=== PATIENT | male | born 1980 | race Caucasian/White ===

== ENCOUNTER 2018-01-21 02:27 | Inpatient (IN) | payer SELFPAY ==
[~2018-01-21] VITALS: Ht 182.9 cm; Wt 94.1 kg
[~2018-01-21 02:27] MED LIST: ACET500T68 PO; HYDR-971 PO; IBUP400T18 PO; OMEP20TA8 PO
[2018-01-21 03:21] LABS: BASO % 1 % (0-3); EOS # 0.1 x10^3/uL (0.0-0.7); EOS % 1 % (0-3); HEMATOCRIT 39.6 % (39.0-53.0); HEMOGLOBIN 13.8 g/dL (13.0-17.5); LYMPH % 20 % (24-48); MEAN CORPUSCULAR HEMOGLOBIN 29 pg (25-35); MEAN CORPUSCULAR HGB CONC 35 g/dL (31-37); MEAN CORPUSCULAR VOLUME 83 fL (79-100); MONO # 0.9 x10^3/uL (0.0-1.1); MONO % 9 % (0-9); NEUT % 70 % (31-73); PLATELET COUNT 259 x10^3/uL (140-400); RED BLOOD COUNT 4.77 x10^6/uL (4.30-5.70); RED CELL DISTRIBUTION WIDTH 13.8 % (11.5-14.5); WHITE BLOOD COUNT 10.1 x10^3/uL (4.0-11.0)
[2018-01-21] MEDS ORDERED: IV NORMAL SALINE 1,000ML 1,000 ML IV ONE ×2 (03:30→05:30)
[2018-01-21] MEDS ORDERED: IV NORMAL SALINE 1,000ML 1,000 ML IV SCH (03:30)
[2018-01-21] MEDS ORDERED: KETOROLAC 30 MG/ML VIAL. IV ONE (03:30)
[2018-01-21] MEDS ORDERED: CLINDAMYCIN 900MG PREMIX 50 ML IV ONE (03:30)
[2018-01-21 03:34] LABS: CALCIUM 8.8 mg/dL (8.5-10.1); CREATININE 0.9 mg/dL (0.7-1.3); GFR 95.5; POTASSIUM 3.4 mmol/L (3.5-5.1)
--- NOTE | 2018-01-21 03:42 | PHYS DOC ---
Past History Past Medical History: Gallstones, GERD Past Surgical History: Cholecystectomy Alcohol Use: Occasionally Drug Use: Amphetamine, Benzodiazepine, Heroin, Opiates Adult General Chief Complaint Chief Complaint: ABSCESS HPI HPI 37-year-old male with a history of multidrug abuse including IV heroin as well as IV methamphetamines now presents to the emergency department complaining of infection right forearm and left hand and wrist. Patient has multiple IV injections daily. Over the last few days he is involved an infection on the dorsum of his left hand with some pus drainage significant hand wrist and forearm swelling and pain. Patient denies fevers chills sweats or shaking chills. He has no headache or stiff neck. No chest pain or shortness of breath. Patient also has an area of erythema on the medial aspect of his left mid forearm. This is tender but has no drainage. Patient is a habitual drug user is not suicidal and has not attempted to harm himself. He has not overdosed intentionally nor is he homicidal. Patient states he does not lick his needles prior to using them. Review of Systems Review of Systems Constitutional: Denies fever or chills [] Eyes: Denies change in visual acuity, redness, or eye pain [] HENT: Denies nasal congestion or sore throat [] Respiratory: Denies cough or shortness of breath [] Cardiovascular: No additional information not addressed in HPI [] GI: Denies abdominal pain, nausea, vomiting, bloody stools or diarrhea [] : Denies dysuria or hematuria [] Musculoskeletal: Denies back pain or joint pain [] Integument: Denies rash or skin lesions [] Neurologic: Denies headache, focal weakness or sensory changes [] Endocrine: Denies polyuria or polydipsia [] All other systems were reviewed and found to be within normal limits, except as documented in this note. Current Medications Current Medications Current Medications Medications (Trade) Dose Ordered Sig/Rober Start Time Stop Time Status Last Admin Dose Admin Clindamycin Phosphate 50 ml @ 100 mls/hr 1X ONCE 01/21/18 03:30 01/21/18 03:59 Ketorolac Tromethamine (Toradol) 30 mg 1X ONCE 01/21/18 03:00 01/21/18 03:01 UNV Sodium Chloride 1,000 ml @ 1,000 mls/hr 1X ONCE 01/21/18 03:30 01/21/18 04:29 Allergies Allergies Allergies Coded Allergies Type Severity Reaction Last Updated Verified No Known Allergies Allergy Unknown 03/04/15 No Physical Exam Physical Exam Constitutional: Patient alert communicative cooperative and appropriate. Unkempt appearance. 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 He has multiple highly visible track baron with tattooing of the individual track baron. On the dorsum of his left hand there is a small "head "which drains PERRLA and drainage with pressure the surrounding area. After pus is expressed was no continued fluctuance and no crepitus of the hand wrist or forearm. Soft tissue swelling involves the whole left hand however he does have range of motion of his fingers without difficulty. Proximal forearm is relatively spared and compartments of the forearm are soft. Neurovascularly intact with good capillary refill distally. Patient has mild tachycardia on exam between 100 and 110 bpm. Medial aspect right mid forearm with 3 cm x 3 cm erythema with mild induration and warmth. No fluctuance or crepitus compartments soft. neurovascularly intact distally HENT: Normocephalic, atraumatic, bilateral external ears normal, oropharynx moist, no oral exudates, nose normal. [] Eyes: PERRLA, EOMI, conjunctiva normal, no discharge. [] Neck: Normal range of motion, no tenderness, supple, no stridor. [] Cardiovascular:Heart rate regular rhythm, no murmur [] Lungs & Thorax: Bilateral breath sounds clear to auscultation [] Abdomen: Bowel sounds normal, soft, no tenderness, no masses, no pulsatile masses. [] Skin: As above Back: No tenderness, no CVA tenderness. [] Extremities: No tenderness, no cyanosis, no clubbing, ROM intact, no edema. [] Neurologic: Alert and oriented X 3, normal motor function, normal sensory function, no focal deficits noted. [] Psychologic: Affect normal, judgement normal, mood normal. [] EKG EKG [] Radiology/Procedures Radiology/Procedures X-ray left forearm unremarkable no acute disease no foreign body or bony abnormality. Interpreted by me X-ray left hand with soft tissue swelling cannot rule out foreign body over hamate. No acute bony abnormality. Interpreted by me[] Impressions: Procedure: I&D of abscess left hand. Dorsum of left hand and distribution of tract baron with abscess with "point/head. "Head unroofed with 18-gauge needle by me. Positive purulent drainage. Pus expressed gently. Spontaneous drainage achieved. Patient tolerated well without complication. Wound culture obtained after sterile Betadine prep of surrounding area prior to procedure. Course & Med Decision Making Course & Med Decision Making Pertinent Labs and Imaging studies reviewed. (See chart for details) Patient with cellulitis and abscess left hand and wrist with cellulitis of right forearm secondary to IV drug abuse. Wound culture collected from purulent drainage of left hand. Blood cultures drawn and antibiotic coverage initiated with clindamycin. IV fluid bolus initiated with volume adequate for Sirs and sepsis coverage. X-ray left forearm unremarkable. X-ray right hand and wrist with hyperdensity over the hamate with inability to rule out foreign body. No acute bony abnormality area interpreted by me. Dr. Ladd aware of x-ray findings as well as remainder of workup and accept the patient for inpatient admission his service. [] Dragon Disclaimer Dragon Disclaimer This electronic medical record was generated, in whole or in part, using a voice recognition dictation system. Departure Departure: Impression: Primary Impression: Abscess of left hand Additional Impressions: Tachycardia Cellulitis of right forearm IV drug abuse SIRS (systemic inflammatory response syndrome) Sepsis Disposition: ADMITTED INPATIENT Admitting Physician: Luis Carlos Ladd Condition: GUARDED Referrals: PRIMO ALVARES MD (PCP) Problem Qualifiers DANIEL TARIQ MD Jan 21, 2018 03:42
[2018-01-21] MEDS ORDERED: NICOTINE 21MG PATCH. TD ONE (05:00)
[2018-01-21] MEDS ORDERED: ACETAMINOPHEN 325 MG TABLET PO PRN (05:45)
[2018-01-21] MEDS ORDERED: ONDANSETRON PF 4 MG/2 ML VIAL. IV PRN (05:45)
[2018-01-21 06:19] VITALS: BP 110/66
--- NOTE | 2018-01-21 07:08 | RAD ---
Left hand, 3 views, 01/21/2018: History: IV drug abuser, abscess on hand No fracture or destructive bony lesion is seen. There is diffuse soft tissue swelling about the hand. No radiopaque foreign body is evident in the soft tissues. IMPRESSION: No acute bony abnormality is detected. Right forearm, 2 views, 01/21/2018: History: Abscess No fracture or destructive bony lesion is seen. Soft tissue swelling is present anteromedially. No radiopaque foreign body is evident in the soft tissues. IMPRESSION: No significant bony abnormality is detected.
[2018-01-21] MEDS: IV NORMAL SALINE 1,000ML 1,000 ML IV SCH ×3 (08:00→22:15)
[2018-01-21] MEDS ORDERED: PIP/TAZO PER PHARMACY MC PRN (09:30)
[2018-01-21] MEDS ORDERED: MORPHINE SULFATE 4 MG/ML DISP.SYRIN. IV PRN (09:30)
[2018-01-21] MEDS ORDERED: VANCOMYCIN 1 GM in IV NORMAL SALINE 250ML 250 ML IV SCH (09:30)
[2018-01-21] MEDS ORDERED: VANCOMYCIN 2 GM in IV NORMAL SALINE 500ML 500 ML IV ONE (10:00)
[2018-01-21 10:48] VITALS: BP 126/81
[2018-01-21] MEDS: VANCOMYCIN PER PHARMACY MC PRN (11:14)
[2018-01-21] MEDS: PIPERACILLIN/TAZOBACTAM 3.375 GM in IV NORMAL SALINE 50ML 50 ML IV SCH ×3 (14:06→23:55)
[2018-01-21] MEDS: KETOROLAC 15 MG/ML VIAL. IV PRN ×2 (14:07→21:45)
[2018-01-21] MEDS: HYDROmorphone PF 2 MG/ML VIAL IV PRN ×3 (14:07→23:55)
[2018-01-21 15:44] VITALS: BP 156/87
--- NOTE | 2018-01-21 17:20 | HP ---
ADMIT DATE: 01/21/2018 HISTORY OF PRESENT ILLNESS: The patient is a 37-year-old male patient with a multitude drug abuse including IV heroin, methamphetamine, as well as Xanax, who presented to the Emergency Department complaining of pain and swelling to his right forearm in the dorsal aspect of left hand and wrist. He has multiple IV injection daily over the last few days. He injected the dorsum of his left hand with some pus drainage and significant wrist and forearm swelling and pain. He denied any fever, chills, sweats, or shaking chills. He has no headache or stiff neck. No chest pain or shortness of breath. He has also an area of erythema on the medial aspect of the left mid forearm that is tender, but has no drainage. The patient is a habitual drug user. He is not suicidal and has not attempted to harm himself. He has not overdosed intentionally nor is homicidal. He stated that he does not flick his needle before using them. He was evaluated in the Emergency Room and he was found to have an infected left hand and wrist, abscess in the left hand and cellulitis of the right forearm, IV drug abuse with signs of systemic inflammatory response syndrome. PAST MEDICAL HISTORY: Apart from habitual drug use is unremarkable. PAST SURGICAL HISTORY: Significant for cholecystectomy and right knee surgery. ALLERGIES: He has no known drug allergies. MEDICATIONS: He is actually on no medication at home. FAMILY HISTORY: Unremarkable. SOCIAL HISTORY: He is , has a son. He is a senior it recruiter, does multiple jobs. He does not smoke, drink alcohol, but has been abusing heroin, methamphetamine, and Xanax. REVIEW OF SYSTEMS: As per history of present illness. PHYSICAL EXAMINATION: VITAL SIGNS: On arrival, he was tachycardic with a heart rate of 107, blood pressure 126/70, temperature was 98.9, respiratory rate 20, and oxygen saturation was 98% on room air. HEAD, EYES, EARS, NOSE, AND THROAT: Showed normocephalic, atraumatic. NECK: Supple. HEART: Showed normal first and second heart sounds with no gallop, rub, or murmur. CHEST: Clear to auscultation. No crepitation or rhonchi. ABDOMEN: Distended, soft, nontender. NEUROLOGIC: He was awake, alert, responding appropriately. Cranial nerves intact. Examination of his right forearm showed that the area of erythema and induration, but no fluctuation consistent with cellulitis. The left hand is markedly swollen because tracks of drug injection with areas of erythema and abscess that was opened. The swelling extends to the distal aspect of the left forearm. LABORATORY DATA: On admission showed a white cell count of 10,000, hemoglobin 13.8, hematocrit 39, MCV 83, and platelet count of 259,000. His chemistry showed a serum sodium 139, potassium 3.4, chloride 101, bicarbonate 28, anion gap of 10, BUN 10, creatinine was 0.9, estimated GFR was 96 mL per minute, his glucose 144. Lactic acid was 1.2. Calcium was 8.8 and CK was 188. ASSESSMENT AND PLAN: The patient was given clindamycin; however, given his presentation, I will broaden his antibiotic to both vancomycin and Zosyn. I will arrange for him to have a PICC line and continue with Zosyn 3.375 grams IV every 8 hours and vancomycin 1 gram IV b.i.d. with the pharmacy to adjust the dose. Continue with IV fluid and decide on further management accordingly. ROXANA STOCKTON MD DR: KUMAR/katy JOB#: [id number] / [id number]
[2018-01-21] MEDS: VANCOMYCIN 1.25 GM in IV NORMAL SALINE 250ML 250 ML IV SCH (18:11)
[2018-01-21 19:02] VITALS: BP 141/75
[2018-01-21 23:35] VITALS: BP 142/71
[2018-01-22] MEDS: VANCOMYCIN 1.25 GM in IV NORMAL SALINE 250ML 250 ML IV SCH ×2 (03:36→11:00)
[2018-01-22] MEDS: HYDROmorphone PF 2 MG/ML VIAL IV PRN ×4 (03:38→17:25)
[2018-01-22 05:21] VITALS: BP 133/74
[2018-01-22] MEDS: PIPERACILLIN/TAZOBACTAM 3.375 GM in IV NORMAL SALINE 50ML 50 ML IV SCH ×2 (05:44→12:12)
[2018-01-22] MEDS: KETOROLAC 15 MG/ML VIAL. IV PRN ×2 (05:44→12:07)
[2018-01-22 06:09] LABS: HEMATOCRIT 35.7 % (39.0-53.0); RED BLOOD COUNT 4.21 x10^6/uL (4.30-5.70); RED CELL DISTRIBUTION WIDTH 13.8 % (11.5-14.5); WHITE BLOOD COUNT 9.2 x10^3/uL (4.0-11.0)
[2018-01-22 06:19] LABS: ALBUMIN 2.6 g/dL (3.4-5.0); ALBUMIN/GLOBULIN RATIO 0.7 (1.0-1.7); CALCIUM 7.9 mg/dL (8.5-10.1); CREATININE 0.8 mg/dL (0.7-1.3); GFR 109.4; TOTAL BILIRUBIN 0.5 mg/dL (0.2-1.0); TOTAL PROTEIN 6.2 g/dL (6.4-8.2)
[2018-01-22 10:24] VITALS: BP 147/81
[2018-01-22 10:46] LABS: VANC TR 13.2 mcg/mL (10.0-20.0)
[2018-01-22] MEDS: VANCOMYCIN PER PHARMACY MC PRN (10:55)
[2018-01-22 14:57] VITALS: BP 162/94
--- NOTE | 2018-01-22 21:09 | DS ---
DATE OF DISCHARGE: 01/22/2018 HOSPITAL COURSE: The patient is a 37-year-old male patient, who is known to abuse multiple drugs including IV heroin and methamphetamine as well as Xanax and who presented to the Emergency Department complaining of pain and swelling of his right forearm, the dorsal aspect of the left hand and wrist. He had multiple IV injection daily over the last few days. He injected the dorsum of his left hand and that side, there was some pus drain draining and significant wrist and forearm swelling and pain; however, he denied any fever, chills, sweats or shaking chills. He has no headache or neck stiffness. No chest pain or shortness of breath. There is also an area of erythema and induration on the medial aspect of the right forearm that is tender, but has no drainage. He is a habitual drug user. He is not suicidal. He has not attempted to harm himself. He has not overdosed intentionally nor is homicidal. He said that he does not lick his needles before using them. He was evaluated in the Emergency Room, was found to have an infected left hand and wrist abscess in the dorsal aspect of the left hand and cellulitis of his right forearm and after obtaining the appropriate cultures and incision of the abscess, he was started on IV vancomycin and Zosyn after placement of a PICC line. Unfortunately, although the abscess was incised, the incision was very small and the patient continued to have large amount of thick pus that required surgical incision in both left forearm and the dorsal aspect of left forearm and the medial aspect of the right forearm, and therefore, a decision was made to transfer him to [facility] to consult the orthopedic surgeon as well as the infectious disease specialist to assist with management. PHYSICAL EXAMINATION: GENERAL: When I saw him today, he looked well and was clearly in no apparent respiratory distress, pale, but no jaundice, cyanosis or thyromegaly. No jugular venous distension. No limb edema. VITAL SIGNS: His heart rate was 88, blood pressure 147/81, temperature was 98.4, respiratory rate 20 and oxygen saturation was 98%. HEAD, EYES, EARS, NOSE AND THROAT: Showed normocephalic, atraumatic. NECK: Supple. HEART: Showed normal first and second sounds. No gallop, rub or murmur. CHEST: Clear to auscultation. No crepitation or rhonchi. ABDOMEN: Distended, soft, nontender. NEUROLOGIC: He is awake, alert, responding appropriately. All cranial nerves intact. EXTREMITIES: He moves extremities without difficulty, ambulates without assistance or assistive devices. Examination of the left upper extremity showed as marked swelling involving the dorsal aspect of the left wrist with an abscess over the dorsal aspect of the left wrist. He has also an area of induration and fluctuance on the medial aspect of the forearm with overlying erythema and tenderness. LABORATORY DATA: His lab work this morning showed a white cell count of 9200, hemoglobin 12, hematocrit 36, MCV 85 and platelet count of 199,000. His chemistry showed a serum sodium 139, potassium 4, chloride 106, bicarbonate 26, anion gap of 7, BUN 9, creatinine 0.8. Estimated GFR was 190 mL per minute. His glucose 117. Calcium was 7.9. Total bilirubin and alkaline phosphatase normal. AST and ALT are elevated. His total protein was 6.2, albumin 2.6. DISCHARGE INSTRUCTIONS: The patient was transferred to [facility] to continue with IV vancomycin, piperacillin, tazobactam as well as hydromorphone for pain management. We will consult the orthopedic surgeon as well as Infectious Disease for incision and drainage of the left forearm abscess and the right forearm abscess. FINAL DISCHARGE DIAGNOSES: Habitual addiction to heroin, methamphetamine and Xanax, abscess and cellulitis of the dorsal aspect of the left wrist and hand, abscess in the medial aspect of the right forearm. ROXANA STOCKTON MD DR: KUMAR/katy JOB#: [id number] / [id number]
--- NOTE | 2018-01-23 02:24 | PN ---
DATE: 01/22/2018 SUBJECTIVE: The patient is sitting comfortably in bed, no apparent distress. He continued to complain of pain in his left hand and right forearm, although he admits that the swelling is much improved compared to yesterday. He denied any chills, rigors or fever. PHYSICAL EXAMINATION: GENERAL: When I examined him, he looked well and was clearly in no apparent respiratory distress, pale. No jaundice, cyanosis, or thyromegaly. No jugular venous distension. No lower limb edema. VITAL SIGNS: His heart rate was 88, blood pressure was 147/81, temperature was 98.4, respiratory rate 20, and oxygen saturation was 98% on room air. HEAD, EYES, EARS, NOSE AND THROAT: Showed normocephalic, atraumatic. NECK: Supple. HEART: Showed normal first and second heart sounds with no gallop, rub or murmur. CHEST: Clear to auscultation. No crepitation or rhonchi. ABDOMEN: Distended, soft, nontender. No guarding or rigidity. No organomegaly. Hernial orifice intact. Bowel sounds normal. NEUROLOGIC: He is awake, alert, responding appropriately. Cranial nerves intact. He moves extremities without difficulty. His wounds in the dorsum of his left hand and right forearm were covered with dressing. His intake was 3127. No output was recorded. LABORATORY DATA: Showed a white cell count is 9200, hemoglobin 12, hematocrit 36, MCV 85 and platelet count of 199,000. His chemistry showed a serum sodium 139, potassium 4, chloride 106, bicarbonate 26, anion gap of 7, BUN 9, creatinine was 0.8, estimated GFR was 190 mL per minute, his glucose ____, calcium was 7.9. Total bilirubin and alkaline phosphatase normal. AST, ALT slightly elevated. Total protein was 6.2, albumin 2.6. ASSESSMENT: An abscess on the dorsal aspect of the left hand and cellulitis secondary to heroin and methamphetamine injection, has also cellulitis of the medial aspect of the right forearm. The patient ____ has been abusing heroin, methamphetamine and Xanax for years. PLAN: To continue the IV antibiotics and the soft tissue swelling is responding, continue to monitor his lab work and we did consult the Wound Care team, we will decide the further management accordingly. ROXANA STOCKTON MD DR: Celestino JOB#: [id number] / [id number]
== END 2018-01-22 17:50 | disposition short-term general hospital (02) | DRG 872 ==
LOC: ER 02:27 → 1 SOUTH 05:34
PROVIDERS: ADMIT Internal Medicine; ATTEND Internal Medicine
PROC: 02HV33Z Insertion of Infusion Device into Superior Vena Cava, Percutaneous Approach (ICD-10-PCS; principal; 2018-01-21)
PROC: B548ZZA Ultrasonography of Superior Vena Cava, Guidance (ICD-10-PCS; 2018-01-21)
DX: A41.9 Sepsis, unspecified organism (principal); F11.20 Opioid dependence, uncomplicated; F15.20 Other stimulant dependence, uncomplicated; F13.20 Sedative, hypnotic or anxiolytic dependence, uncomplicated; L02.512 Cutaneous abscess of left hand; L03.113 Cellulitis of right upper limb; K21.9 Gastro-esophageal reflux disease without esophagitis; Z90.49 Acquired absence of other specified parts of digestive tract
CPT/HCPCS: 10060; 36415; 73090; 73130; 80048; 80053; 80202; 82550; 83605; 85025; 85027; 87040; 87070; 96365; 96375; 99406; J1170; J1885; J2270; J2543; J3370; J3490; J7040; J7050; 99285-25; J7030